=== PATIENT | male | born 1960 | race Caucasian/White ===

== ENCOUNTER 2017-12-29 08:59 | Day surgery (SDC) | payer OTHER ==
[2017-12-27 09:26] VITALS: BMI 28.8
[~2017-12-29 08:59] MED LIST: LACTATED RINGERS 1,000 ML IV SCH
[2017-12-29 09:44] VITALS: TEMP 98.2
[2017-12-29] MEDS ORDERED: PROPOFOL 10 MG/ML 20 ML VIAL IV ONE (10:58)
[2017-12-29] MEDS ORDERED: LIDOCAINE 1% INJ 10MG/ML (20 ML MDV) ONE (10:58)
--- NOTE | 2017-12-29 11:27 | P.PCN ---
Date of Procedure: 12/29/17 Procedure(s) Performed: Procedure: Colonoscopy and polypectomy. Preoperative diagnosis: Screening for neoplasia, patient has history of polyps and family history of colon cancer. Postoperative diagnosis: 1. Diverticulosis with no evidence of acute diverticulitis or strictures. 2. Diminutive sigmoid polyp snared but no large polyps or cancer. Preparation: HalfLytely prep. Sedation: Was provided by anesthesia. Brief clinical history: The patient is a 57-year-old male who is scheduled for this evaluation because of family history of colon cancer in his mother and also history of polyps. His last exam was in June 2013. The patient has no abdominal complaints, bleeding or anemia. Procedure: With the patient on his left lateral decubitus position and after informed consent and adequate sedation the perianal area was inspected and it did not show any fissures or fistulas. There were no masses felt on digital rectal examination. The Olympus CFQ 160L video colonoscope was then inserted in the rectum in the usual fashion and advanced to the cecum. There were a few diverticular orifices noted on the right and left side with no evidence of acute diverticulitis or strictures. There was a diminutive polyp in the midsigmoid which was snared and retrieved by suction but there were no large polyps or cancer. I retroflexed the endoscope in the rectum before the endoscope was withdrawn. The patient tolerated the procedure well. Plan: The patient was reassured. Discussed dietary measures. He will follow up with you as planned and I recommended repeat exam in 5 years.
[2017-12-29 11:35] VITALS: RESP 18
[2017-12-29 11:59] VITALS: BP 142/95; PULSE 61
== END 2017-12-29 12:07 | disposition home or self-care (01) ==
LOC: ORWHC2ENDO 08:59
DX: Z12.11 Encounter for screening for malignant neoplasm of colon (principal); Z80.0 Family history of malignant neoplasm of digestive organs; Z86.010 Personal history of colon polyps; K63.5 Polyp of colon; K57.30 Diverticulosis of large intestine without perforation or abscess without bleeding; Z91.09 Other allergy status, other than to drugs and biological substances; Z87.891 Personal history of nicotine dependence; Z79.891 Long term (current) use of opiate analgesic; Z79.51 Long term (current) use of inhaled steroids; Z79.899 Other long term (current) drug therapy
CPT/HCPCS: 88305; 45385; J2001; J2704

== ENCOUNTER → 2021-02-14 | Outpatient (CLI) | payer BC ==
[2021-02-14 10:25] LABS: Amorphous Sediment,Urine Rare /hpf; Appearance,Urine Cloudy (Clear); Bilirubin,Urine Negative (Negative); Blood,Urine Negative (Negative); Color,Urine Yellow; Glucose,Urine (UA) Negative (Negative); Ketones,Urine Negative (Negative); Leukocyte Esterase,Urine Negative (Negative); Mucus,Urine Rare /hpf; Nitrite,Urine Negative (Negative); Protein,Urine Negative (Negative); Specific Gravity,Urine 1.012 (1.001-1.035); Urobilinogen,Urine <2.0 mg/dL (<2.0)
[2021-02-14 11:34] LABS: HCT 39.2 % (39.6-50.0); HGB 13.8 g/dL (13.0-17.0); MCH 31.9 pg (27.0-32.0); MCHC 35.2 g/dL (32.0-37.0); MCV 90.5 fL (80.0-97.0); Mean Platelet Volume 8.1 fL (9.5-12.2); Platelet Count 294 X 10*3/uL (140-440); RBC 4.33 X 10*6/uL (4.40-5.60); RDW 13.6 % (11.5-14.5); WBC 9.66 X 10*3/uL (4.50-10.00)
[2021-02-14 21:15] LABS: African American GFR (CKD) 116.8 (60.0-200.0); Albumin 4.5 g/dL (3.8-4.9); Albumin/Globulin Ratio 2.31 (1.60-3.17); Anion Gap 14.3 mmol/L (4.00-12.00); BUN/Creat Ratio 18.82 Ratio (12.00-20.00); Calcium 9.1 mg/dL (8.7-10.3); Carbon Dioxide 20.2 mmol/L (21.6-31.8); Chol/HDL Ratio 2.21 Ratio; Globulin 1.9 g/dL (1.6-3.3); HDL Cholesterol 70.1 mg/dL (40.00-60.00); LDL Cholesterol,Calculated 71.4 mg/dL (0.0-131.0); Non-African American GFR(CKD) 100.7 (60.0-200.0); Potassium 3.9 mmol/L (3.5-5.5); Prostate Specific Antigen 1.5 ng/mL (0.00-3.50); Total Bilirubin 0.5 mg/dL (0.30-1.20); Total Protein 6.4 g/dL (6.2-8.2); Triglycerides 67.5 mg/dL (0.00-149.00); VLDL Calculation 13.5 mg/dL (5.00-40.00)
== END | disposition home or self-care (01) ==
LOC: LABWHC1 08:44
PROVIDERS: ATTEND Family Medicine
DX: Z00.01 Encounter for general adult medical examination with abnormal findings (principal)
CPT/HCPCS: 36415; 80053; 80061; 81001; 82306; 83036; 84153; 85027

== ENCOUNTER → 2021-04-11 | Outpatient (CLI) | payer BC ==
[2021-04-11 23:17] LABS: African American GFR (CKD) 113.3 (60.0-200.0); Anion Gap 11.5 mmol/L (10.00-18.00); BUN/Creat Ratio 12.75 Ratio (12.00-20.00); Blood Urea Nitrogen 10.2 mg/dL (9.0-27.0); Calcium 9.7 mg/dL (8.7-10.3); Carbon Dioxide 22.1 mmol/L (20.0-27.5); Non-African American GFR(CKD) 97.8 (60.0-200.0); Potassium 4.7 mmol/L (3.5-5.5)
== END | disposition home or self-care (01) ==
LOC: LABWHC1 10:13
PROVIDERS: ATTEND Family Medicine
DX: E87.1 Hypo-osmolality and hyponatremia (principal)
CPT/HCPCS: 36415; 80048; 83930

== ENCOUNTER → 2021-04-17 | Outpatient (CLI) | payer BC | END | disposition home or self-care (01) | LOC: LABWHC1 07:14 | PROVIDERS: ATTEND Family Medicine | DX: E87.1 Hypo-osmolality and hyponatremia (principal) | CPT/HCPCS: 36415; 84295 ==

== ENCOUNTER → 2022-03-05 | Outpatient (CLI) | payer BC ==
[2022-03-05 10:44] LABS: HGB 14.2 g/dL (13.0-17.0); MCH 31.3 pg (27.0-32.0); MCHC 34.6 g/dL (32.0-37.0); MCV 90.5 fL (80.0-97.0); Mean Platelet Volume 8.4 fL (9.5-12.2); NRBC Per 100 WBC 0 /100 WBCS (0.0-0.0); Platelet Count 252 X 10*3/uL (140-440); RBC 4.53 X 10*6/uL (4.40-5.60); RDW 13.2 % (11.5-14.5)
[2022-03-05 11:44] LABS: Appearance,Urine Clear (Clear); Bilirubin,Urine Negative (Negative); Blood,Urine Negative (Negative); Color,Urine Yellow (Yellow); Ketones,Urine Negative (Negative); Nitrite,Urine Negative (Negative); PH, Urine 7.5 (5.0-8.0); Specific Gravity,Urine 1.011 (1.001-1.030); Urobilinogen,Urine 0.2 (0.2,1.0)
[2022-03-05 18:55] LABS: Chol/HDL Ratio 2.71 Ratio
== END | disposition home or self-care (01) ==
LOC: LABWHC1 07:41
PROVIDERS: ATTEND Family Medicine
DX: N40.0 Benign prostatic hyperplasia without lower urinary tract symptoms (principal); E87.1 Hypo-osmolality and hyponatremia; E66.3 Overweight
CPT/HCPCS: 36415; 80053; 80061; 81003; 82306; 83036; 83721; 83930; 84153; 85027

== ENCOUNTER → 2023-03-19 | Outpatient (CLI) | payer BC ==
[2023-03-19 13:49] LABS: HCT 40.1 % (39.6-50.0); HGB 14.1 g/dL (13.0-17.0); MCH 31.7 pg (27.0-32.0); MCHC 35.2 g/dL (32.0-37.0); MCV 90.1 FL (80.0-97.0); Mean Platelet Volume 8.1 FL (9.5-12.2); NRBC Per 100 WBC 0 X 10*3/uL (0.00-0.01); Platelet Count 282 X 10*3/uL (140-440); RBC 4.45 X 10*6/uL (4.40-5.60); RDW 13.3 % (11.5-14.5)
[2023-03-19 13:59] LABS: ALT 33 U/L (10-49); AST 27 U/L (14-35); Albumin 4.8 g/dL (3.8-4.9); Alkaline Phosphatase 64 U/L (41-126); Blood Urea Nitrogen 15.2 mg/dL (9.0-27.0); Calcium 9.6 mg/dL (8.7-10.3); Carbon Dioxide 23.5 mmol/L (21.6-31.8); Chloride 100 mmol/L (96-109); Chol/HDL Ratio 2.42 Ratio; Glucose 85 mg/dL (70-110); LDL Cholesterol,Calculated 91.5 mg/dL (0.0-131.0); Potassium 4.6 mmol/L (3.5-5.5); Prostate Specific Antigen 2.62 ng/mL (0.000-4.500); Sodium 133 mmol/L (135-145); Total Bilirubin 0.3 mg/dL (0.3-1.2); Total Protein 6.8 g/dL (6.2-8.2); VLDL Calculation 6.58 mg/dL (5.00-40.00)
== END | disposition home or self-care (01) ==
LOC: LABWHC1 08:35
PROVIDERS: ATTEND Family Medicine
DX: Z00.01 Encounter for general adult medical examination with abnormal findings (principal)
CPT/HCPCS: 36415; 80053; 80061; 83036; 84153; 85027

== ENCOUNTER → 2023-04-11 | Outpatient (CLI) | payer BC ==
[2023-04-12 02:46] LABS: Prostate Specific Antigen 1.63 ng/mL (0.000-4.500)
== END | disposition home or self-care (01) ==
LOC: LABWHC1 15:05
PROVIDERS: ATTEND Family Medicine
DX: E87.1 Hypo-osmolality and hyponatremia (principal); N40.0 Benign prostatic hyperplasia without lower urinary tract symptoms
CPT/HCPCS: 36415; 84153; 84295

== ENCOUNTER 2023-05-25 11:40 | Day surgery (SDC) | payer BC ==
[2023-05-18 13:02] VITALS: BMI 26.6
[2023-05-25] MEDS: LACTATED RINGERS 1,000 ML IV SCH ×2 (11:51→12:29)
[2023-05-25 12:11] VITALS: TEMP 97.9
[2023-05-25] MEDS ORDERED: PROPOFOL 10 MG/ML 20 ML VIAL IV ONE (12:33)
--- NOTE | 2023-05-25 12:48 | P.PCN ---
Date of Procedure: 05/25/23 Procedure(s) Performed: BRIEF HISTORY: Patient is a 62-year-old pleasant white male scheduled for an elective colonoscopy as a part of evaluation of prior history of colon polyps and family history of colon cancer. His mother was diagnosed with colon cancer at age 50. PROCEDURE PERFORMED: Colonoscopy. PREOPERATIVE DIAGNOSIS: History of colon polyps and family history of colon cancer. IV sedation per Anesthesia. PROCEDURE: After informed consent was obtained, the patient, was brought into the endoscopy unit. IV sedation was administered by Anesthesia under continuous monitoring. Digital rectal examination was normal. Initially the Olympus CF-160 flexible video colonoscope was then inserted in the rectum, gradually advanced into the cecum without any difficulty. Careful examination was performed as the scope was gradually being withdrawn. Ileocecal valve and the appendiceal orifice were visualized and appeared normal. Prep was excellent. Mucosa of the cecum, ascending colon, transverse colon, descending colon, sigmoid colon, and rectum appeared normal. Retroflexion was performed in the rectum and no lesions were seen. Scattered sigmoid diverticulosis. The patient tolerated the procedure well. IMPRESSION: Normal-appearing colon from rectum to cecum with no evidence of colorectal neoplasia. Scattered sigmoid diverticulosis. RECOMMENDATIONS: Findings of this examination were discussed with the patient as well as his family.. He was advised to have a repeat colonoscopy in 5 years because of the family history of colon cancer
[2023-05-25 12:59] VITALS: RESP 16
[2023-05-25 13:23] VITALS: BP 135/81; PULSE 74
== END 2023-05-25 13:30 | disposition home or self-care (01) ==
LOC: ORWHC2ENDO 11:40
PROVIDERS: ATTEND Internal Medicine Gastroenterology
DX: Z12.11 Encounter for screening for malignant neoplasm of colon (principal); K57.30 Diverticulosis of large intestine without perforation or abscess without bleeding; Z86.010 Personal history of colon polyps; Z80.0 Family history of malignant neoplasm of digestive organs; Z79.899 Other long term (current) drug therapy
CPT/HCPCS: 45378; J2704

== ENCOUNTER → 2024-03-31 | Outpatient (CLI) | payer BC ==
[2024-03-31 12:59] LABS: HCT 42.6 % (39.6-50.0); HGB 14.6 g/dL (13.0-17.0); MCH 31.3 pg (27.0-32.0); MCHC 34.3 g/dL (32.0-37.0); MCV 91.2 FL (80.0-97.0); Mean Platelet Volume 8.1 FL (9.5-12.2); NRBC Per 100 WBC 0 X 10*3/uL (0.00-0.01); Platelet Count 296 X 10*3/uL (140-440); RBC 4.67 X 10*6/uL (4.40-5.60); RDW 13.2 % (11.5-14.5); WBC 6.17 X 10*3/uL (4.50-10.00)
[2024-03-31 13:44] LABS: ALT 24 U/L (10-49); AST 25 U/L (14-35); Albumin 4.8 g/dL (3.8-4.9); Alkaline Phosphatase 72 U/L (41-126); BUN/Creat Ratio 17.62 Ratio (12.00-20.00); Blood Urea Nitrogen 14.1 mg/dL (9.0-27.0); Calcium 9.9 mg/dL (8.7-10.3); Carbon Dioxide 23.1 mmol/L (21.6-31.8); Chloride 95 mmol/L (96-109); Chol/HDL Ratio 2.76 Ratio; Globulin 2.4 g/dL (1.6-3.3); Glucose 96 mg/dL (70-110); LDL Cholesterol,Calculated 102.8 mg/dL (0.0-131.0); Potassium 5.6 mmol/L (3.5-5.5); Prostate Specific Antigen 1.84 ng/mL (0.000-4.500); Sodium 130 mmol/L (135-145); Total Bilirubin 0.4 mg/dL (0.3-1.2); Total Protein 7.2 g/dL (6.2-8.2); VLDL Calculation 9.54 mg/dL (5.00-40.00)
[2024-03-31 13:48] LABS: Appearance,Urine Clear (Clear); Bilirubin,Urine Negative (Negative); Blood,Urine Negative (Negative); Color,Urine Yellow (Yellow); Ketones,Urine Negative (Negative); Nitrite,Urine Negative (Negative); PH, Urine 7.5; Specific Gravity,Urine 1.014 (1.001-1.030)
== END | disposition home or self-care (01) ==
LOC: LABWHC1 07:47
PROVIDERS: ATTEND Family Medicine
DX: Z00.00 Encounter for general adult medical examination without abnormal findings (principal)
CPT/HCPCS: 36415; 80053; 80061; 81003; 82306; 83036; 84153; 84443; 85027